=== PATIENT | female | born 1980 | race Caucasian/White ===

== ENCOUNTER 2017-12-02 22:05 | Inpatient (IN) | payer MEDICAID ==
[2017-12-02] MEDS ORDERED: LIDOCAINE 1% (MPF) 30 ML INJ (22:16)
[2017-12-02] MEDS ORDERED: METHYLERGONOVINE 0.2 MG INJ IM (22:30)
[2017-12-02] MEDS ORDERED: CARBOPROST 250 MCG INJ IM (22:30)
[2017-12-02] MEDS ORDERED: MISOPROSTOL 200 MCG TAB PR (22:30)
[2017-12-02] MEDS ORDERED: BUTORPHANOL 2 MG INJ IV (22:30)
[2017-12-02] MEDS ORDERED: LIDOCAINE 1% (MPF) 30 ML INJ INJ (22:30)
[2017-12-02] MEDS ORDERED: OXYTOCIN 30 UNITS/LR 500 ML IV (22:30)
[2017-12-02 22:48] LABS: ADD MAN DIFF? NO
[2017-12-02 22:50] LABS: ABNORMAL IP MESSAGE 1; EOSINOPHILS # 0.1 10^3/ul (0.0-0.5); EOSINOPHILS % 0.7 % (0.0-7.0); HEMATOCRIT 38.9 % (37.0-47.0); NEUTROPHILS % 72.2 % (39.0-77.0)
[2017-12-02] MEDS: LACTATED RINGER'S 1,000 ML IV (22:52)
[2017-12-02 22:57] LABS: WHITE BLOOD COUNT 11.8 10^3/ul (4.8-10.8)
[2017-12-02 22:57] LABS: BASOPHILS % 0.3 % (0.0-2.0); HEMOGLOBIN 13.2 g/dl (12.0-16.0); LYMPHOCYTES # 2.4 10^3/ul (0.8-2.9); MEAN CORPUSCULAR HEMOGLOBIN 31.2 pg (29.0-33.0); MEAN CORPUSCULAR HGB CONC 33.9 g/dl (32.0-37.0); MEAN PLATELET VOLUME 14.4 fl (7.4-10.4); MONOCYTE # 0.8 10^3/ul (0.3-0.9); MONOCYTES % 6.4 % (0.0-11.0); NEUTROPHIL # 8.5 10^3/ul (1.6-7.5); PLATELET COUNT 134 10^3/UL (140-415); RED BLOOD COUNT 4.23 10^6/ul (4.20-5.40)
[2017-12-02 22:58] LABS: POSITIVE DIFF @See below
[2017-12-02] MEDS ORDERED: FENTAnyl 2MCG/ML-ROPIV 0.2% 100 ML (23:01)
[2017-12-02 23:13] LABS: INR 0.88; PT RATIO 0.9
[2017-12-02 23:14] LABS: PARTIAL THROMBOPLASTIN TIME 25.9 Sec (25.0-35.0)
[2017-12-02] MEDS ORDERED: FENTAnyl 2MCG/ML-ROPIV 0.2% 100 ML BAG EPI (23:30)
[2017-12-02] MEDS ORDERED: NALOXONE (0.4 MG/ML) INJ IV (23:30)
[2017-12-02 23:40] LABS: HEPATITIS B SURFACE ANTIGEN NEGATIVE (NEGATIVE)
[2017-12-03] MEDS: OXYTOCIN 30 UNITS/LR 500 ML IV ×3 (00:22→01:50)
[2017-12-03] MEDS ORDERED: BENZOCAINE 20% 56 ML SPRAY TOP (01:00)
[2017-12-03] MEDS ORDERED: METHYLERGONOVINE 0.2 MG INJ IM (01:00)
[2017-12-03] MEDS ORDERED: WITCH HAZEL/GLYCERIN PAD PR (01:00)
[2017-12-03] MEDS ORDERED: SENNA/DOCUSATE NA (8.6MG/50MG) TAB PO (01:00)
[2017-12-03] MEDS ORDERED: CARBOPROST 250 MCG INJ IM (01:00)
[2017-12-03] MEDS ORDERED: OXYTOCIN 30 UNITS/LR 500 ML IV (01:00)
[2017-12-03] MEDS ORDERED: NACL 0.9% 3 ML SYG IV (01:00)
[2017-12-03] MEDS ORDERED: ONDANSETRON 4 MG INJ IV (01:00)
[2017-12-03] MEDS ORDERED: MISOPROSTOL 200 MCG TAB PR (01:00)
[2017-12-03] MEDS ORDERED: OXYCODONE/ASPIRIN (4.88/325) TAB PO ×2 (01:00)
[2017-12-03] MEDS: IBUPROFEN 600 MG TAB PO ×3 (05:48→18:04)
[2017-12-03] MEDS: SENNA/DOCUSATE NA (8.6MG/50MG) TAB PO ×2 (09:16→21:00)
[2017-12-03 15:03] LABS: RAPID PLASMA REAGIN NONREACTIVE (NR)
[2017-12-03] MEDS: LANOLIN 7 GM TUBE TOP (23:35)
[2017-12-04] MEDS: IBUPROFEN 600 MG TAB PO ×4 (06:00→18:01)
[2017-12-04] MEDS: SENNA/DOCUSATE NA (8.6MG/50MG) TAB PO ×2 (08:15→21:16)
[2017-12-04 09:10] LABS: ADD MAN DIFF? NO
[2017-12-04 09:16] LABS: WHITE BLOOD COUNT 11.3 10^3/ul (4.8-10.8)
[2017-12-04 09:16] LABS: ABNORMAL IP MESSAGE 1; BASOPHILS % 0.4 % (0.0-2.0); EOSINOPHILS # 0.1 10^3/ul (0.0-0.5); HEMATOCRIT 38.4 % (37.0-47.0); HEMOGLOBIN 12.6 g/dl (12.0-16.0); LYMPHOCYTES # 1.8 10^3/ul (0.8-2.9); LYMPHOCYTES % 16.1 % (15.0-51.0); MEAN CORPUSCULAR HEMOGLOBIN 30.8 pg (29.0-33.0); MEAN CORPUSCULAR HGB CONC 32.8 g/dl (32.0-37.0); MEAN CORPUSCULAR VOLUME 93.9 fl (82.0-101.0); MEAN PLATELET VOLUME 13.6 fl (7.4-10.4); MONOCYTE # 0.6 10^3/ul (0.3-0.9); MONOCYTES % 5.6 % (0.0-11.0); NEUTROPHIL # 8.7 10^3/ul (1.6-7.5); NEUTROPHILS % 76.3 % (39.0-77.0); PLATELET COUNT 124 10^3/UL (140-415); RED BLOOD COUNT 4.09 10^6/ul (4.20-5.40); RED CELL DISTRIBUTION WIDTH 13.2 % (11.5-14.5)
[2017-12-04 09:17] LABS: POSITIVE DIFF @See below
[2017-12-05] MEDS: IBUPROFEN 600 MG TAB PO ×3 (00:35→11:54)
[2017-12-05] MEDS: SENNA/DOCUSATE NA (8.6MG/50MG) TAB PO (09:57)
== END 2017-12-05 17:15 | disposition home or self-care (01) | DRG 775 ==
LOC: OBT 22:05 → PP1 12-03 02:04 → L-D 22:08 → OBT 22:20 → L-D 22:20
PROVIDERS: Obstetrics & Gynecology
PROC: 10E0XZZ Delivery of Products of Conception, External Approach (ICD-10-PCS; principal; 2017-12-03)
PROC: 3E033VJ Introduction of Other Hormone into Peripheral Vein, Percutaneous Approach (ICD-10-PCS; 2017-12-03)
DX: O69.81X0 Labor and delivery complicated by cord around neck, without compression, not applicable or unspecified (principal); O26.33 Retained intrauterine contraceptive device in pregnancy, third trimester; Z3A.39 39 weeks gestation of pregnancy; Z37.0 Single live birth
CPT/HCPCS: 62319; 85025; 85610; 85730; 86592; 86850; 86900; 86901; 87340; 88300; 88307